=== PATIENT | female | born 1995 | race African-American/Black ===

== ENCOUNTER 2017-06-01 09:24 | Emergency (ER) | payer MEDICAID, OTHER ==
[~2017-06-01] VITALS: Ht 167.6 cm; Wt 95.3 kg
[2017-06-01] MEDS ORDERED: methylPREDNISolone SOD SUCC 125 MG/2 ML VL IV ONE (11:00)
[2017-06-01] MEDS ORDERED: IPRATROPIUM BROM 0.5 MG/2.5ML INH SOL NEB ONE (11:00)
[2017-06-01] MEDS ORDERED: PANTOPRAZOLE 40 MG/10 ML VIAL IV ONE (11:00)
[2017-06-01] MEDS ORDERED: ALBUTEROL SULF 2.5 MG/0.5ML(0.5%) NEB SOLN NEB ONE (11:00)
[2017-06-01] MEDS ORDERED: SODIUM CHLORIDE 0.9% 1,000 ML IV ONE (11:09)
[2017-06-01] MEDS ORDERED: LORazepam 2MG/ML-1ML VIAL IV ONE (11:15)
[2017-06-01 11:33] LABS: Basophils # (auto) 0 uL; Basophils % (auto) 0.3 % (0.0-2.0); Eosinophils # (auto) 0 uL; Eosinophils % (auto) 0.4 % (0.0-7.0); Hematocrit 37.2 % (36.0-46.0); Hemoglobin 12.2 g/dL (12.2-16.2); Lymphocytes # (auto) 1.9 uL; Lymphocytes % (auto) 20.1 % (10.0-50.0); Mean Corpuscular Hemoglobin 29.1 pg (28.0-32.0); Mean Corpuscular Hgb Conc. 32.7 g/dL (32.0-36.0); Mean Platelet Volume 7.1 fL (6.9-10.8); Monocytes # (auto) 0.7 uL; Monocytes % (auto) 7.3 % (0.0-12.0); Neutrophils % (auto) 71.9 % (37.0-80.0); Nucleated Red Blood Cells % 0.1 %; Platelet Count (auto) 267 10^3/uL (140-450); Red Cell Distribution Width 13.3 % (11.8-14.3); White Blood Cell 9.7 10^3/uL (4.4-10.8)
[2017-06-01 11:50] LABS: Albumin 3.6 g/dL (3.4-5.0); Alkaline Phosphatase 81 U/L (45-117); Anion Gap 10 (5-15); Aspartate Aminotransferase 17 U/L (15-37); BUN/Creatinine Ratio 12.7; Bilirubin, Total 0.2 mg/dL (0.2-1.0); Blood Urea Nitrogen 9 mg/dL (7-18); Calcium 8.9 mg/dL (8.5-10.1); Carbon Dioxide 22 mmol/L (21-32); Chloride 108 mmol/L (98-107); GFR African American 132 mL/min; GFR Non-African American 109 mL/min; Glucose 92 mg/dL (74-106); Potassium 3.5 mmol/L (3.5-5.1); Sodium 140 mmol/L (136-145); Total Protein 8.1 g/dL (6.4-8.2)
[2017-06-01 13:00] VITALS: BP 109/69
== END 2017-06-01 13:50 | disposition home or self-care (01) ==
LOC: ER 09:24 → EDUNIT# 09:24 → EDBD 09:24 → ER 13:50
DX: J70.5 Respiratory conditions due to smoke inhalation (principal); F41.9 Anxiety disorder, unspecified; F17.210 Nicotine dependence, cigarettes, uncomplicated
CPT/HCPCS: 36415; 71020; 80053; 84484; 85025; 94640; 96361; 96374; 96375; 99285; C9113; J2930

== ENCOUNTER 2018-07-11 19:19 | Emergency (ER) | payer MEDICAID ==
[~2018-07-11] VITALS: Ht 170.2 cm; Wt 113.4 kg
[2018-07-11 20:02] LABS: Basophils # (auto) 0 uL; Basophils % (auto) 0.5 % (0.0-2.0); Eosinophils # (auto) 0.1 uL; Eosinophils % (auto) 1.2 % (0.0-7.0); Hematocrit 37.4 % (36.0-46.0); Hemoglobin 12.4 g/dL (12.2-16.2); Lymphocytes # (auto) 3.3 uL; Lymphocytes % (auto) 43.1 % (10.0-50.0); Mean Corpuscular Hemoglobin 28.4 pg (28.0-32.0); Mean Corpuscular Hgb Conc. 33.2 g/dL (32.0-36.0); Mean Corpuscular Volume 85.4 fL (80.0-100.0); Monocytes # (auto) 0.5 uL; Monocytes % (auto) 6.9 % (0.0-12.0); Neutrophils # (auto) 3.7 uL; Neutrophils % (auto) 48.3 % (37.0-80.0); Nucleated Red Blood Cells % 0.2 %; Platelet Count (auto) 357 10^3/uL (140-450); Red Blood Cells 4.38 10^6/uL (4.0-5.20); Red Cell Distribution Width 13.6 % (11.8-14.3); White Blood Cell 7.7 10^3/uL (4.4-10.8)
[2018-07-11 20:08] LABS: Urine Bacteria MANY /hpf (None Seen); Urine Blood TRACE /uL (Negative); Urine Mucus FEW (None Seen); Urine Specific Gravity 1.018 (1.001-1.035); Urine WBC 38 /hpf (0 - 5); Urine WBC Clumps PRESENT /hpf (None Seen)
[2018-07-11 20:22] LABS: Alanine Aminotransferase 29 U/L (13-56); Albumin 3.5 g/dL (3.4-5.0); Amylase 81 U/L (25-115); Anion Gap 5 (5-15); Aspartate Aminotransferase 17 U/L (15-37); Blood Urea Nitrogen 8 mg/dL (7-18); Calcium 9.1 mg/dL (8.5-10.1); Carbon Dioxide 25 mmol/L (21-32); Chloride 108 mmol/L (98-107); GFR African American > 60 mL/min; GFR Non-African American > 60 mL/min; Glucose 91 mg/dL (74-106); Lipase 105 U/L (73-393); Magnesium 2.4 mg/dL (1.6-2.6); Potassium 3.7 mmol/L (3.5-5.1); Sodium 138 mmol/L (136-145)
[2018-07-11 20:25] LABS: Alkaline Phosphatase 93 U/L (45-117); Bilirubin, Total 0.3 mg/dL (0.2-1.0); Total Protein 8.6 g/dL (6.4-8.2)
[2018-07-11 21:02] LABS: INR 1.02 (0.9-1.15); Partial Thromboplastin Time 35.7 sec (23.78-33.04); Prothrombin Time 10.9 sec (9.27-12.13)
[2018-07-12 03:05] VITALS: BP 125/51
== END 2018-07-12 03:08 | disposition home or self-care (01) ==
LOC: EDBD 19:19 → ER 19:19 → EDUNIT# 19:19 → ER 07-12 03:08
DX: N39.0 Urinary tract infection, site not specified (principal); R51 Headache; F17.210 Nicotine dependence, cigarettes, uncomplicated
CPT/HCPCS: 36415; 70450; 74176; 80053; 81001; 81025; 82150; 83690; 83735; 85025; 85610; 85730

== ENCOUNTER 2023-05-19 10:04 | Emergency (ER) | payer MEDICAID ==
[~2023-05-19] VITALS: Ht 160 cm; Wt 86.7 kg
[2023-05-19 11:33] VITALS: BP 143/65; PULSE 72; RESP 16; TEMP 98.5; O2SAT 97
[2023-05-19 13:21] LABS: Basophils # (auto) 0.1 10 ^3/uL (0-0.2); Basophils % (auto) 0.9 % (0.0-2.0); Eosinophils # (auto) 0 10 ^3/uL (0-0.8); Eosinophils % (auto) 0.4 % (0.0-7.0); Hematocrit 35.8 % (36.0-46.0); Hemoglobin 11.7 g/dL (12.2-16.2); Lymphocytes # (auto) 2.6 10 ^3/uL (0.4-5.4); Lymphocytes % (auto) 33.6 % (10.0-50.0); Mean Corpuscular Hemoglobin 29.6 pg (28.0-32.0); Mean Corpuscular Hgb Conc. 32.5 g/dL (32.0-36.0); Mean Corpuscular Volume 90.9 fL (80.0-100.0); Monocytes # (auto) 0.5 10 ^3/uL (0-1.3); Monocytes % (auto) 5.9 % (0.0-12.0); Neutrophils # (auto) 4.6 10 ^3/uL (1.6-8.6); Neutrophils % (auto) 59.2 % (37.0-80.0); Nucleated Red Blood Cells % 0.1 %; Red Blood Cells 3.94 10^6/uL (4.0-5.20); Red Cell Distribution Width 13.5 % (11.8-14.3); White Blood Cell 7.8 10^3/uL (4.4-10.8)
[2023-05-19 13:41] LABS: Alanine Aminotransferase 28 U/L (7-40); Albumin 4.4 g/dL (3.2-4.8); Alkaline Phosphatase 77 U/L (46-116); Anion Gap 6 (5-15); Aspartate Aminotransferase 16 U/L (13-40); BUN/Creatinine Ratio 15.9 (10.0-20.0); Blood Urea Nitrogen 13 mg/dL (9-23); Calcium 9.8 mg/dL (8.5-10.1); Carbon Dioxide 25 mmol/L (20-30); Chloride 107 mmol/L (98-107); Glucose 91 mg/dL (74-106); Potassium 4.1 mmol/L (3.5-5.1); Sodium 138 mmol/L (136-145)
[2023-05-19 13:42] LABS: Bilirubin, Total 0.4 mg/dL (0.2-1.0); Total Protein 7.8 g/dL (5.7-8.2)
[2023-05-19 14:16] LABS: Urine Bacteria NONE SEEN /hpf (None Seen); Urine Blood 1+ /uL (Negative); Urine Clarity Clear (Clear); Urine Color Colorless (Yellow); Urine Protein, UAD Negative (Negative); Urine Specific Gravity 1.023 (1.001-1.035); Urine Urobilinogen Normal (Negative); Urine WBC <1 /hpf (0 - 5)
[2023-05-19] MEDS ORDERED: ALBUAER3 IN (14:41)
== END 2023-05-19 15:03 | disposition home or self-care (01) ==
LOC: ER 10:04
DX: J45.909 Unspecified asthma, uncomplicated (principal); R10.2 Pelvic and perineal pain; F17.210 Nicotine dependence, cigarettes, uncomplicated; Z76.0 Encounter for issue of repeat prescription
CPT/HCPCS: 36415; 80053; 81001; 84702; 85025